=== PATIENT | female | born 1985 | race Caucasian/White ===

== ENCOUNTER 2022-11-28 08:05 | Outpatient (CLI) | payer BC, SELFPAY ==
--- NOTE | ~2022-11-28 | MMUS_ITS ---
EXAMINATION: MM diagnostic ramon BI w delia, US breast BI complete HISTORY: Palpable left breast abnormality TECHNIQUE: Additional 3-D tomosynthesis images of were performed and synthetic 2-D images were genera sergo. CAD analysis was submitted and interpreted. High resolution complete bilateral breast ultrasound was performed. COMPARISON: None BREAST PARENCHYMAL COMPOSITION: The breasts are extremely dense, which lowers the sensitivity of mamm ography FINDINGS: MAMMOGRAPHIC FINDINGS: There are no suspicious masses, calcifications or architectural distortion in either breast to sugges t malignancy. ULTRASOUND: Complete bilateral US of all 4 quadrants of the breasts and retroareolar region was reviewed. Right breast: At 12:00, 2 cm from the nipple, there is a complicated or cluster of microcysts measuri ng 4 mm maximum dimension, benign. At 3:00, 4 cm from the nipple there is a 3 mm cyst. Left breast: At 10:00, 5 cm from the nipple in the area of palpable concern there is a lobulated hypo echoic irregular shaped mass with mixed posterior attenuation measuring 2.6 x 1.7 x 1.2 cm. No technology development intern al vascularity. At 4:00, 1 cm from the nipple there is a 5 mm minimally complicated cysts. IMPRESSION: 1. Lobulated hypoechoic 2.6 cm left breast mass in the area of palpable concern. No mammographic shree elate. 2. Ultrasound-guided left breast biopsy recommended. BI-RADS category 4, suspicious findings. Reviewed, dictated and finalized at location A. IMPRESSION: 1. Lobulated hypoechoic 2.6 cm left breast mass in the area of palpable concern . No mammographic correlate. 2. Ultrasound-guided left breast biopsy recommended. BI-RADS category 4, suspicious findings.
== END 2022-11-28 08:06 ==
LOC: MICIMG 08:07
PROVIDERS: PCP Student in an Organized Health Care Education/Training Program; Visit Provider Student in an Organized Health Care Education/Training Program
DX: N63.20 Unspecified lump in the left breast, unspecified quadrant (principal); N60.01 Solitary cyst of right breast
CPT/HCPCS: 76641; 77062; 77066; G0279